=== PATIENT | female | born 1960 | race Caucasian/White ===

== ENCOUNTER 2016-11-30 17:11 | Outpatient (CLI) | payer BC | END 2016-11-30 17:12 | disposition home or self-care (01) | LOC: MADLABBHPM 17:11 | PROVIDERS: ATTEND Family Medicine | DX: Z01.419 Encounter for gynecological examination (general) (routine) without abnormal findings (principal) ==

== ENCOUNTER 2018-05-26 16:11 | Emergency (ER) | payer SELFPAY ==
--- NOTE | 2018-05-26 16:46 | RAD ---
RIGHT WRIST THREE VIEW 05/26/18 HISTORY: Injury. COMPARISON: None. FINDINGS: Comminuted intra-articular fracture of the distal radius with dorsal angulation and displacement two cortex width. There is also fracture of the base of the ulnar styloid. IMPRESSION: Comminuted intra-articular distal radius fracture with dorsal angulation and displacement as well as an ulnar styloid base fracture. POS: [facility]
--- NOTE | 2018-05-26 17:58 | RAD ---
RIGHT WRIST THREE VIEW 05/26/18 HISTORY: Fracture. COMPARISON: Wrist radiograph same day. FINDINGS: Mild improved alignment intra-articular distal radius fracture with improved alignment of the ulnar s tyloid fracture. There is still dorsal angulation and displacement which is similar. IMPRESSION: Similar dorsal angulation and displacement of distal radial fracture, although the transverse displac ement is less. POS: [facility]
[2018-05-26] MEDS ORDERED: HYDROcodone/Acetaminophen 5/325 mg Tablet ONE (18:17)
== END 2018-05-26 18:20 | disposition home or self-care (01) ==
LOC: MADERS 16:11
DX: S52.501A Unspecified fracture of the lower end of right radius, initial encounter for closed fracture (principal); S52.611A Displaced fracture of right ulna styloid process, initial encounter for closed fracture; M06.9 Rheumatoid arthritis, unspecified; F32.9 Major depressive disorder, single episode, unspecified; W19.XXXA Unspecified fall, initial encounter
CPT/HCPCS: 25605

== ENCOUNTER 2019-06-25 09:30 | Outpatient (CLI) | payer OTHER ==
--- NOTE | 2019-06-25 09:55 | RAD ---
EXAM: Chest 2 views: HISTORY: Swelling of right breast for 2 weeks COMPARISON: None. FINDINGS: There is a normal-sized cardiomediastinal silhouette. The patient has bilateral breast implants. Th ere is no evidence of consolidation, mass, or pleural effusion. The bones are unremarkable. IMPRESSION: No evidence of acute cardiopulmonary disease
== END 2019-06-25 09:31 | disposition home or self-care (01) ==
LOC: MADRAD 09:30
PROVIDERS: ATTEND Family Medicine
DX: R92.8 Other abnormal and inconclusive findings on diagnostic imaging of breast (principal); N63.10 Unspecified lump in the right breast, unspecified quadrant
CPT/HCPCS: 71046